=== PATIENT | female | born 1985 | race Caucasian/White ===

== ENCOUNTER 2017-08-25 17:39 | Emergency (ER) | payer OTHER ==
[2017-08-25 17:45] VITALS: BP 123/70; PULSE 70; TEMP 98.8; BMI 22.9
--- NOTE | 2017-08-25 18:26 | PDOC ---
History of Present Illness - General Chief Complaint: Sore Throat Stated Complaint: PAIN Time Seen by Provider: 08/25/17 18:06 - History of Present Illness Initial Comments: 08/25/17 18:21 CHIEF COMPLAINT: cold symptoms HISTORY OF PRESENT ILLNESS: 32 yo F with no PMH presents to [facility] with sore throat, hoarse voice, sinus congestion, runny nose, intermittent body aches x 2 days. Patient states all the symptoms "came out of nowhere" and have worsened over the past 38 hours. No recent travel or sick contacts. PAST MEDICAL HISTORY: Denies past medical history FAMILY HISTORY: Denies SOCIAL HISTORY: Denies tobacco, alcohol, illicit drug use. SURGICAL HISTORY: Denies ALLERGIES: shellfish REVIEW OF SYSTEMS General/Constitutional: Denies fever or chills. Denies weakness. HEENT: Sore throat x 2 days. Denies change in vision. Denies ear pain or discharge. Cardiovascular: Denies chest pain or shortness of breath. Respiratory: Cough x 2 days. Gastrointestinal: Denies nausea, vomiting, diarrhea or constipation. Denies rectal bleeding. Genitourinary: Denies dysuria, frequency, or change in urination. Musculoskeletal: Denies joint or muscle swelling or pain. Denies neck or back pain. Skin and breasts: Denies rash or easy bruising. Neurologic: Headche. Denies vertigo, loss of consciousness, or loss of sensation. PHYSICAL EXAM General Appearance: Well-appearing, appropriately dressed. No apparent distress. HEENT: Hoarase voice. Sinus congestion, post nasal drip. No tonsillar swelling or exudate. EOMI, PERRLA, TMs normal, pharynx normal. No conjunctival pallor. No photophobia, scleral icterus. Neck: Supple. Trachea midline. No tenderness, rigidity, carotid bruit, stridor , lymphadenopathy, or thyromegaly. Respiratory/Chest: Lungs CTAB. Cardiovascular: RRR. S1, S2. Musculoskeletal/Extremities: Normal inspection. FROM of all extremities, normal capillary refill. No tenderness to extremities, pedal edema, swelling, erythema or deformity. Integumentary: Appropriate color, dry, warm. No cyanosis, erythema, jaundice or rash Neurologic: marble carver II-XII intact. Fully oriented, alert. Appropriate mood/affect. Motor strength 5/5. No appreciable EOM palsy, facial droop or sensory deficit. Past History - Past Medical History Allergies/Adverse Reactions: Allergies Allergy/AdvReac Type Severity Reaction Status Date / Time shellfish derived Allergy Verified 08/25/17 17:45 Home Medications: Ambulatory Orders Dextromethorphan HBr [Robitussin] 15 mg PO Q6H PRN #28 capsule 08/25/17 Ibuprofen [Motrin -] 400 mg PO QID PRN #28 tablet 08/25/17 Loratadine [Claritin] 10 mg PO DAILY #14 tablet 08/25/17 Pseudoephedrine HCl [Pseudoephedrine ER] 120 mg PO BID #20 tablet.er 08/25/17 Asthma: Yes Other medical history: denies - Suicide/Smoking/Psychosocial Hx Smoking History: Never smoked Information on smoking cessation initiated: No Hx Alcohol Use: No Drug/Substance Use Hx: No Substance Use Type: None *Physical Exam - Vital Signs Last Vital Signs Temp Pulse Resp BP Pulse Ox 98.8 F 70 18 123/70 100 08/25/17 17:43 08/25/17 17:43 08/25/17 17:43 08/25/17 17:43 08/25/17 17:43 Medical Decision Making - Medical Decision Making 08/25/17 18:26 32 yo F with no PMH presents to [facility] with sore throat, hoarse voice, sinus congestion, runny nose, intermittent body aches x 2 days. -Flu, strep swabs *DC/Admit/Observation/Transfer Diagnosis at time of Disposition: Viral syndrome - Discharge Dispostion Disposition: HOME Condition at time of disposition: Stable Admit: No - Prescriptions Prescriptions: Loratadine [Claritin] 10 mg PO DAILY #14 tablet Ibuprofen [Motrin -] 400 mg PO QID PRN #28 tablet PRN Reason: body/headaches Pseudoephedrine HCl [Pseudoephedrine ER] 120 mg PO BID #20 tablet.er Dextromethorphan HBr [Robitussin] 15 mg PO Q6H PRN #28 capsule PRN Reason: Cough - Referrals Referrals: Jaiden Malhotra MD [Staff Physician] - - Patient Instructions Printed Discharge Instructions: DI for Viral Upper Respiratory Infection -- Adult Additional Instructions: Please take medications as prescribed. Follow up with your primary care doctor within the next week if symptoms persist. If you develop any fever, chills, vomiting, diarrhea, or any new or worsening symptoms, please return to the ER.
== END 2017-08-25 19:27 | disposition home or self-care (01) ==
LOC: JERFT 17:39
DX: B34.9 Viral infection, unspecified (principal)
CPT/HCPCS: 87070; 87430; 87804; 99281-25